=== PATIENT | female | born 1970 | race African-American/Black ===

== ENCOUNTER 2020-04-19 12:19 | Outpatient (CLI) | payer OTHER | END 2020-04-19 21:37 | disposition home or self-care (01) | LOC: MUS 12:19 | DX: N85.2 Hypertrophy of uterus (principal) | CPT/HCPCS: 76856 ==

== ENCOUNTER 2020-07-11 08:40 | Outpatient (CLI) | payer OTHER | END 2020-07-11 20:12 | disposition home or self-care (01) | LOC: MCA 08:40 | DX: Z01.818 Encounter for other preprocedural examination (principal) | CPT/HCPCS: 71046 ==